=== PATIENT | male | born 1985 | race Two or more races ===

== ENCOUNTER 2016-12-21 10:09 | Emergency (ER) | payer MEDICAID ==
[~2016-12-21 10:09] MED LIST: ABREVA TOP; BENADRYL25 M3 PO; PREDNISONE20 M1 PO
[2016-12-21] MEDS ORDERED: HYDROCODON-ACE1 EA16 PO (10:28)
[2016-12-21] MEDS ORDERED: FLONASE ALLERG9.9 ML (10:28)
[2016-12-21] MEDS ORDERED: VENTOLIN HFA18 G2 INH (10:29)
[2016-12-21 11:05] LABS: BASO % 0.2 % (0-2); EOS % 2.7 % (0-7); EOSINOPHIL ABSOLUTE COUNT 0.2 tho/cmm (0.0-0.7); HCT-HEMATOCRIT 46.5 % (36.0-53.5); HGB-HEMOGLOBIN 16.4 gm/dl (13.5-17.0); IMMATURE GRANULOCYTES ABSOLUTE 0.01 tho/cmm (0-0.03); IMMATURE GRANULOCYTES PERCENT 0.1 % (0-0.3); LYMPH % 8.6 % (20-45); LYMPH ABSOLUTE COUNT 0.8 tho/cmm (0.8-4.5); MCH (MEAN CORPUSCULAR HGB) 31.6 pg (28.0-32.0); MCHC MEAN CORPUSCULAR HGB CONC 35.3 % (32.0-36.0); MCV (MEAN CELL VOLUME) 89.6 fl (82.0-96.0); MEAN PLATELET VOLUME 11.2 cmc (9.4-12.4); MONOCYTE ABSOLUTE COUNT 0.8 tho/cmm (0.0-1.2); NEUTROPHIL ABSOLUTE COUNT 6.9 tho/cmm (1.6-8.0); NEUTROPHIL-AUTOMATED 6.9 tho/cmm (1.6-8.0); NEUTROPHILS % 79.4 % (40-80); PLATELET COUNT 157 tho/cmm (150-450); RED BLOOD COUNT 5.19 mil/cmm (4.40-5.70); RED CELL DISTRIBUTION WIDTH 12.1 % (12.4-16.4); WHITE BLOOD COUNT 8.7 tho/cmm (4.0-10.0)
[2016-12-21 11:21] LABS: ALB/GLOB RATIO 1.3 (0.8-2.0); ALBUMIN 3.8 g/dl (3.5-5.0); ALKALINE PHOSPHATASE 75 U/L (33-138); ALT/SGPT 29 U/L (12-78); ANION GAP 13 mmol/L (0-20); AST/SGOT 19 U/L (10-40); BILIRUBIN,TOTAL 0.5 mg/dl (0.0-1.5); BLOOD UREA NITROGEN 16 mg/dl (6-24); CALCIUM 8.7 mg/dl (8.5-10.5); CARBON DIOXIDE-VENOUS 27 mmol/L (22-32); CHLORIDE 108 mmol/l (96-110); CREATININE 0.96 mg/dl (0.60-1.30); GLUCOSE 99 mg/dL (70-110); LIPASE 76 U/L (73-393); POTASSIUM 4.4 mmol/L (3.7-5.1); SODIUM 144 mmol/L (135-145); eGFR VALUE FOR BLACK >90 mL/Min
[2016-12-21 11:47] LABS: URINE BILIRUBIN NEGATIVE (NEG); URINE BLOOD NEGATIVE (NEG); URINE GLUCOSE (UA) NEGATIVE (NEG); URINE KETONE NEGATIVE (NEG); URINE LEUKOCYTE ESTERASE NEGATIVE (NEG); URINE NITRITE NEGATIVE (NEG); URINE PROTEIN NEGATIVE (NEG)
[2016-12-21 11:48] LABS: URINE APPEARANCE CLEAR; URINE COLOR YELLOW
[2016-12-21] MEDS ORDERED: 24HOUR ALLERGY10 MG PO (12:23)
[2016-12-21] MEDS ORDERED: OMEPRAZOLE20 M3 PO (12:26)
[2016-12-21] MEDS ORDERED: CARAFATE1 G2 PO (12:29)
[2016-12-21] MEDS ORDERED: IBUPROFEN800 M1 PO (12:31)
[2016-12-21] MEDS ORDERED: PROMETHAZINE HC25 M3 PO (13:01)
[2016-12-21] MEDS ORDERED: PROAIR HFA8.5 GM INH (13:13)
[2016-12-21] MEDS ORDERED: NORCO 5-325 TA1 EACH PO (13:13)
[2016-12-21] MEDS ORDERED: PREDNISONE10 M1 PO (13:13)
[2016-12-21] MEDS ORDERED: PRILOSEC OTC20 M1 PO (13:13)
== END 2016-12-21 13:35 ==
LOC: EDMED 10:09
PROVIDERS: Physician Assistant
DX: J40 Bronchitis, not specified as acute or chronic (principal); R10.13 Epigastric pain; F17.210 Nicotine dependence, cigarettes, uncomplicated; Z79.899 Other long term (current) drug therapy
CPT/HCPCS: J2270; J2405; J7030; Q9967